=== PATIENT | male | born 1940 | race Caucasian/White ===

== ENCOUNTER 2019-01-18 10:49 | Inpatient (IN) | payer OTHER, MEDICARE ==
--- NOTE | 2019-01-18 11:04 | EDPHY ---
H & P Time Seen by Provider: 01/18/19 10:59 HPI/ROS: CHIEF COMPLAINT: Syncope, head injury HISTORY OF PRESENT ILLNESS: 78-year-old male presents after a fall with a head injury. According to bystanders, he was standing on the 4th rung of a ladder when he became rigid and then fell backwards, striking his head and back on the ground. He was alert on scene and was not postictal. c/o mild left-sided rib pain after the fall. No prodromal symptoms. Ate breakfast this morning. Denies recent illness, dizziness, shortness of breath, chest pain, abdominal pain, headache or neck pain. No prior similar sx and no h/o sz disorder. REVIEW OF SYSTEMS: complete 10 point ROS reviewed and is negative except for the noted elements in the HPI - Social History Alcohol Use: Sober Drug Use: None - Physical Exam Exam: General Appearance: Alert, talkative, not confused Head: 6 cm complex H-shaped scalp laceration Eyes: No conjunctival erythema, PERRLA, EOMI, horizontal nystagmus present ENT, Mouth: no oral trauma, no facial bony tenderness Neck: Nontender, full range of motion without pain Respiratory: normal inspection, left chest wall tenderness, lungs clear bilaterally Cardiovascular: Regular rate and rhythm Abdomen: Abdomen is soft and nontender Skin: No abrasions Back: No midline T/L/S tenderness Extremities: Pelvis is stable and nontender; no extremity tenderness or deformity, full range of motion without pain Neurological: A&Ox3, normal motor function, normal sensory exam, cranial nerves intact Psychiatric: Mood and affect normal Constitutional: Initial Vital Signs Temperature (C) 36.5 C 01/18/19 10:49 Heart Rate 69 01/18/19 10:49 Respiratory Rate 16 01/18/19 10:49 Blood Pressure 160/81 H 01/18/19 10:49 O2 Sat (%) 89 L 01/18/19 10:49 O2 Delivery Mode Room Air Allergies/Adverse Reactions: No Known Allergies Allergy (Verified 01/18/19 14:37) Home Medications: Medication Instructions Recorded Acetaminophen [Tylenol 325mg (*)] 325 mg PO DAILY PRN 01/18/19 Glucosamine Sulfate [Glucosamine 500 mg PO DAILY 01/18/19 Sulfate 500 MG (*)] Herbals/Supplements -Info Only 1 ea PO DAILY 01/18/19 Omeprazole 40 mg PO DAILY 01/18/19 Ranitidine HCl [Zantac] 150 mg PO HS 01/18/19 Simvastatin [Zocor] 20 mg PO HS 01/18/19 Tamsulosin HCl [Flomax 0.4 MG (*)] 0.8 mg PO HS 01/18/19 Triamterene/Hydrochlorothiazid 1 each PO DAILY 01/18/19 [Triamterene-Hctz 37.5-25 mg Tb] amLODIPine BESYLATE [Norvasc 5 mg 5 mg PO DAILY 01/18/19 (*)] Psyllium Husk (with Sugar) 1 each PO DAILY 01/19/19 [Metamucil Packet] Medical Decision Making - Diagnostics EKG Interpretation: EKG interpreted by me reveals NSR, rate 68, RBBB, LPFB. Interpretation: abnormal EKG Imaging Results: Head CT 01/18/19 10:59 Impression: 1. No acute intracranial process. 2. 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 3. Suggestion of chronic microvascular ischemic disease. Findings and recommendations discussed with DULCE NG at 1122 hour, 2018. Imaging: Discussed imaging studies w/ tying in machine operator Radiologist Procedures: Procedure: Laceration repair. The 6 cm complex laceration on the scalp was anesthetized using lidocaine with epinephrine. The wound was irrigated, draped and explored to its base with a gloved finger. There were no deep structures involved. No foreign body palpable. The wound was repaired with katy. The wound repair was simple. ED Course/Re-evaluation: This patient presents as a LTA+ after a syncopal episode with a scalp laceration and rib pain. Cspine cleared by me on pt arrival by NEXUS criteria. Stat EKG reveals RBBB and LPFB; no evidence of ischemia or dysrhythmia. Presentation concerning for dysrhythmia, given lack of prodromal sx and bifascicular block on EKG. Considered primary seizure, but the patient was not postictal after the episode. CT head obtained d/t syncope and CHI in elderly pt. CT head: no evidence of ICH/fx. CXR reveals no evidence of PTX or rib fx, results d/w pt. Scalp laceration stapled by me. Serial neuro exams x 2 unchanged. Abd remains soft, NT. Dr Paul consulted for admission d/t LTA + and saw the pt in the ED. Dr. Lopez consulted for w/u of syncopal episode and saw pt in ED. Pt stable and desk monitor NSR throughout ED stay. Differential Diagnosis: Differential diagnosis includes though is not limited to cardiac dysrhythmia, CVA, TIA, GI bleed, sepsis, hypoglycemia. - Data Points Laboratory Results: Laboratory Results 01/18/19 11:00 01/18/19 11:00 Medications Given: Amlodipine Besylate (Norvasc) 5 mg PO DAILY [facility] Stop: 07/18/19 08:59 Last Admin: 01/20/19 07:15 Dose: 5 mg Atorvastatin Calcium (Lipitor) 10 mg PO HS KELLY Stop: 07/17/19 20:59 Last Admin: 01/19/19 21:51 Dose: 10 mg Famotidine (Pepcid) 20 mg PO HS KELLY Stop: 07/17/19 20:59 Last Admin: 01/19/19 21:51 Dose: 20 mg Ibuprofen (Motrin) 600 mg PO Q8HRS KELLY Stop: 07/17/19 13:59 Last Admin: 01/20/19 06:09 Dose: 600 mg Miscellaneous Medication (Cholecalciferol 400 Iu) 400 iunits PO DAILY KELLY Stop: 07/18/19 16:59 Last Admin: 01/19/19 18:51 Dose: 400 i.unit Miscellaneous Medication (Co Q-10 ) 100 mg PO DAILY KELLY Stop: 07/18/19 16:59 Last Admin: 01/19/19 18:51 Dose: 100 mg Miscellaneous Medication (Glucosamine Msm ) 1,500 mg PO DAILY KELLY Stop: 07/18/19 16:59 Last Admin: 01/19/19 18:52 Dose: 1,500 mg Miscellaneous Medication (Saw Eolia ) 160 mg PO DAILY [facility] Stop: 07/18/19 16:44 Last Admin: 01/19/19 18:52 Dose: 160 mg Oxycodone HCl (Oxycodone Ir) 5 - 10 mg PO Q4HRS PRN PRN Reason: Pain, Severe Able to Take PO Stop: 01/28/19 12:59 Last Admin: 01/19/19 05:20 Dose: 5 mg Pantoprazole Sodium (Protonix) 40 mg PO DAILY [facility] Stop: 07/18/19 08:59 Last Admin: 01/19/19 09:01 Dose: 40 mg Psyllium Hydrophilic Mucilloid (Metamucil/Konsyl) 1 each PO DAILY KELLY Stop: 07/18/19 16:44 Last Admin: 01/19/19 17:20 Dose: 1 each Tamsulosin HCl (Flomax) 0.8 mg PO HS KELLY Stop: 07/17/19 20:59 Last Admin: 01/19/19 21:51 Dose: 0.8 mg Triamterene/HCTZ (Maxzide-25) 1 each PO DAILY KELLY Stop: 07/18/19 08:59 Last Admin: 01/19/19 09:01 Dose: 1 each Discontinued Medications Potassium Chloride/Dextrose/Sod Cl (D5w 1/2 Ns W/ 20 Kcl/L) 1,000 mls @ 100 mls /hr IV CONT KELLY Stop: 07/17/19 12:59 Last Admin: 01/18/19 15:05 Dose: 1,000 mls Miscellaneous Medication (Saw Eolia ) 450 mg PO DAILY KELLY Stop: 07/18/19 16:44 Last Admin: 01/19/19 19:46 Dose: Not Given Point of Care Test Results: Chemistry 01/18/19 11:04 POC Troponin I 0.01 ng/mL ng/mL (0.00-0.08) Departure - Departure Disposition: [facility] Inpatient Acute Clinical Impression: Syncope Qualifiers: Syncope type: unspecified Qualified Code(s): R55 - Syncope and collapse Scalp laceration Qualifiers: Encounter type: initial encounter Qualified Code(s): S01.01XA - Laceration without foreign body of scalp, initial encounter Chest wall contusion Qualifiers: Encounter type: initial encounter Laterality: left Qualified Code(s): S20.212A - Contusion of left front wall of thorax, initial encounter Condition: Fair
[2019-01-18 11:16] LABS: PLATELET COUNT 329 10^3/uL (150-400)
--- NOTE | 2019-01-18 12:47 | GCON ---
[f rep st] CONSULTATION DATE OF CONSULTATION: 01/18/2019 REASON FOR CONSULTATION: I was asked by Dr. Paul to see Mr. Maldonado in regard to his medical is sues including hypertension, hyperlipidemia, and syncope. HISTORY OF PRESENT ILLNESS: This is a 78-year-old man who was brought in as a full trauma activation after falling off a ladder. 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 His day, per his rep ort, was normal. He ate normally. Has not had any nausea, vomiting, or diarrhea. Immediately befor e falling off he had no prodromal symptoms including no shortness of breath, no palpitations, no ches t pain. He was a few rungs up on the ladder when he fell backwards hitting his head. He has no real recollection of this. He does remember the paramedics coming and waking him up when he was still on the floor. There was no report of any tonic-clonic movement. He was not confused afterwards. He d id not lose control of his bowel or bladder. He has never fainted before. He has no cardiac history per his report. He does not believe he has ever had a cardiac stress test. PAST MEDICAL/SURGICAL HISTORY: 1. Hypertension. 2. BPH. 3. GERD. 4. Hyperlipidemia. 5. Carpal tunnel release. MEDICATIONS: Please see medication reconciliation. ALLERGIES: No known drug allergies. FAMILY HISTORY: His father had heart disease in his 80s. His mother lived to be 100. 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 REVIEW OF SYSTEMS: A 10-point review of systems is conducted and is negative except per HPI. PHYSICAL EXAM: VITAL SIGNS: Blood pressure 160/81, heart rate 69, respiration rate 16, saturating 8 9% on room air, temperature 36.5. GENERAL: Mr. Maldonado is a pleasant man who is resting comfortably in no acute distress. HEENT: Shows him to have a complicated scalp laceration close to the crown of his head. He has katy in place. CARDIOVASCULAR: Regular rate and rhythm. I do hear some henrique ture beats. He has no elevated JVD. He has trace right lower extremity pitting edema. PULMONARY: Shows him to be breathing comfortably. Lungs are clear to auscultation bilaterally. ABDOMEN: Exam is soft. He is mildly obese. He is nontender to palpation. SKIN: Shows no rash. : Shows no Fo jasmina. NEUROLOGIC: Shows him to be alert and oriented x3. He has a nonfocal neurologic exam. PSYCHI ATRIC: Exam shows a normal mood and affect. LABS: White count is 9.9, hemoglobin is 18.1. Basic metabolic panel is normal. Troponin is negativ e. DATA: 1. Head CT shows cystic encephalomalacia of the right frontal lobe. 2. EKG, which I personally viewed and interpreted, shows sinus rhythm. He has premature beats. He has a right bundle branch block as well as a left posterior fascicular block. 3. Chest x-ray, which I personally viewed and interpreted, Radiology read is pending. Shows borderl ine cardiomegaly. There are no acute infiltrates. IMPRESSION AND PLAN: 1. Syncope: Concerning for arrhythmogenic given his history. He also has an abnormal EKG. Also co nsider pulmonary embolism (his vitals do not support this), he does have trace right lower extremity edema. He has an abnormal CT scan of his head which shows chronic findings. I have discussed with Antoni Randolph, Cardiology will consult. Will order echocardiogram, trend troponins and telemetry maria t toring. We will order an ultrasound of his lower extremities as well as a D-dimer. Based on these f indings, will consider additional workup or diagnostic testing. 2. Chronic encephalomalacia: He follows with the [facility]. This can likely be followed up as out patient. 3. I doubt the whole presentation is consistent with a seizure as there was no report of tonic-cloni c movement. 4. Hypertension: Will continue his home medications when those have been reconciled as he is hypert ensive. 5. Gastroesophageal reflux disease: PPI. 6. Hyperlipidemia: Continue medications after they have been reconciled. Thank you for involving Hospital Medicine in the care of Mr. Maldonado. We will continue to follow with you. /[id number]/MODL
--- NOTE | 2019-01-18 12:58 | PDGENHP ---
History and Physical - Chief Complaint fall with syncopal episode - History of Present Illness 78yo M, limited trauma activation. Was on a ladder working on a friends house. Doesnt remember falling but remembers coming to. Endorses head pain but has no other complaints. Has never had a syncopal episode in his life. Enroses seeing a PCP regularly. No CP. No fevers or chills. He is AOx3, protecting his airway with adequate breathing and normal circulation. History Information - Allergies/Home Medication List Allergies/Adverse Reactions: No Known Allergies Allergy (Unverified 01/18/19 11:11) Home Medications: Amlodipine Besylate 01/18/19 [Last Taken Unknown] Omeprazole 01/18/19 [Last Taken Unknown] Tamsulosin HCl 01/18/19 [Last Taken Unknown] Triamterene 01/18/19 [Last Taken Unknown] I have personally reviewed and updated: family history, medical history, social history, surgical history Past Medical History: HTN, BPH, GERD, HLD - Surgical History Additional surgical history: R carpal tunnel release, angela knee scopes - Family History Positive for: non-pertinent - Social History Smoking Status: Current some day smoker Alcohol Use: Sober Drug Use: None Review of Systems Review of Systems: ROS: 10pt was reviewed & negative except for what was stated in HPI & below Physical Exam Physical Exam: Temp Pulse Resp BP Pulse Ox 36.5 C 69 16 160/81 H 89 L 01/18/19 10:49 01/18/19 10:49 01/18/19 10:49 01/18/19 10:49 01/18/19 10:49 Constitutional: no apparent distress, appears nourished, not in pain Eyes: PERRL, anicteric sclera, EOMI Ears, Nose, Mouth, Throat: moist mucous membranes, hearing normal, ears appear normal, no oral mucosal ulcers Cardiovascular: regular rate and rhythym, no murmur, rub, or gallop, No edema Respiratory: no respiratory distress, no rales or rhonchi, clear to auscultation , other (chest is min TTP on LL, no crepitus ) Gastrointestinal: normoactive bowel sounds, soft, non-tender abdomen, no palpable masses Genitourinary: no bladder fullness, no bladder tenderness Skin: warm, normal color, no rashes or abrasions, no fluctuance, no induration, other (skin lac to posterior head (repaired with katy)), No mottled Musculoskeletal: full muscle strength, no muscle tenderness, normal joint ROM, no joint effusions Psychiatric: interacting appropriately, not anxious, not encephalopathic, thought process linear Lymph, Heme, Immunologic: no cervical LAD, no supraclavicular LAD Lab Data & Imaging Review 01/18/19 11:00 01/18/19 11:00 WBC 9.96 10^3/uL (3.80-9.50) H 01/18/19 11:00 RBC 5.95 10^6/uL (4.40-6.38) 01/18/19 11:00 Hgb 18.1 g/dL (13.7-17.5) H 01/18/19 11:00 Hct 51.6 % (40.0-51.0) H 01/18/19 11:00 MCV 86.7 fL (81.5-99.8) 01/18/19 11:00 MCH 30.4 pg (27.9-34.1) 01/18/19 11:00 MCHC 35.1 g/dL (32.4-36.7) 01/18/19 11:00 RDW 13.3 % (11.5-15.2) 01/18/19 11:00 Plt Count 329 10^3/uL (150-400) 01/18/19 11:00 MPV 9.9 fL (8.7-11.7) 01/18/19 11:00 Neut % (Auto) 56.2 % (39.3-74.2) 01/18/19 11:00 Lymph % (Auto) 29.1 % (15.0-45.0) 01/18/19 11:00 [place] % (Auto) 11.3 % (4.5-13.0) 01/18/19 11:00 Eos % (Auto) 2.1 % (0.6-7.6) 01/18/19 11:00 Baso % (Auto) 0.8 % (0.3-1.7) 01/18/19 11:00 Nucleat RBC Rel Count 0.0 % (0.0-0.2) 01/18/19 11:00 Absolute Neuts (auto) 5.59 10^3/uL (1.70-6.50) 01/18/19 11:00 Absolute Lymphs (auto) 2.90 10^3/uL (1.00-3.00) 01/18/19 11:00 Absolute Monos (auto) 1.13 10^3/uL (0.30-0.80) H 01/18/19 11:00 Absolute Eos (auto) 0.21 10^3/uL (0.03-0.40) 01/18/19 11:00 Absolute Basos (auto) 0.08 10^3/uL (0.02-0.10) 01/18/19 11:00 Absolute Nucleated RBC 0.00 10^3/uL (0-0.01) 01/18/19 11:00 Immature Gran % 0.5 % (0.0-1.1) 01/18/19 11:00 Immature Gran # 0.05 10^3/uL (0.00-0.10) 01/18/19 11:00 D-Dimer 0.97 ug/mLFEU (0.00-0.50) H 01/18/19 11:00 Sodium 138 mEq/L (135-145) 01/18/19 11:00 Potassium 4.2 mEq/L (3.5-5.2) 01/18/19 11:00 Chloride 103 mEq/L (97-110) 01/18/19 11:00 Carbon Dioxide 26 mEq/l (22-31) 01/18/19 11:00 Anion Gap 9 mEq/L (6-14) 01/18/19 11:00 BUN 14 mg/dL (7-23) 01/18/19 11:00 Creatinine 1.0 mg/dL (0.7-1.3) 01/18/19 11:00 Estimated GFR > 60 01/18/19 11:00 Glucose 97 mg/dL (70-100) 01/18/19 11:00 Calcium 10.0 mg/dL (8.5-10.4) 01/18/19 11:00 POC Troponin I 0.01 ng/mL (0.00-0.08) 01/18/19 11:04 Troponin I < 0.012 ng/mL (0.000-0.034) 01/18/19 11:00 Visualized and Interpreted imaging results: Yes Interpretation: CT head: negative. CXR: no acute trauma, no fx Assessment & Plan Assessment: Syncope (Acute) Plan: 78yo M s/p likely syncopal episode - patient will be admitted to the trauma service, IM consultation for syncopal MAR - gentle fluids - reg diet - PO pain control - PT/OT
[2019-01-18] MEDS ORDERED: D5W 1/2 NS W/ 20 KCl/L 1,000 ML IV SCH (13:00)
[2019-01-18] MEDS ORDERED: HYDROmorphONE/DILAUDID 1 MG/ML INJ IVP PRN (13:00)
[2019-01-18] MEDS ORDERED: ACETAMINOPHEN 325 MG TAB PO PRN ×2 (13:00→16:26)
[2019-01-18] MEDS ORDERED: IOPAMIDOL (ISOVUE 370) 100 ML BTL IV ONE (13:43)
[2019-01-18] MEDS: IBUPROFEN 600 MG TAB PO SCH ×2 (14:56→23:10)
[2019-01-18] MEDS: oxyCODONE IR 5 MG TAB PO PRN ×2 (14:56→17:27)
--- NOTE | 2019-01-18 15:04 | CPEKG ---
Test Reason : OPEN Blood Pressure : / mmHG Vent. Rate : 068 BPM Atrial Rate : 068 BPM P-R Int : 185 ms QRS Dur : 175 ms QT Int : 459 ms P-R-T Axes : 073 102 -24 degrees QTc Int : 489 ms Sinus rhythm Atrial premature complexes RBBB and LPFB Confirmed by Steph Wadsworth ([id number]) on 01/18/2019 3:04:22 PM Referred By: Steph Wadsworth Confirmed By:Steph Wadsworth
--- NOTE | 2019-01-18 15:22 | SOAPPROG ---
[facility] Progress Note Assessment/Plan: Assessment: cardiology new patient visit and consultation performed and dictated 78 y/o man with HTN, BPH and hyperlipidemia with no previous cardiac problems or testing. He usually can walk for three miles with mild UMAÑA but no CP or palpitations. 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 Denies prodromal CP, palpitations or symptoms. Bedside echo just completed shows normal LVEF with normal valvular function. ECG with NSR with RBBB and LPFB at 68bpm. IMP: Syncope concerning for bradyarrhythmias. Low suspicion for CAD or CHF but needs functional stress test. REC: 1)continue on home BP meds (Amlodipine and Maxzide). 2)telemetry monitoring to in particular look for bradyarrhythmias. 3)will discuss with EP service for 30 day event monitor vs EP study. 4)pt is pretty sore after fall off ladder. Probably couldn't do a treadmill cardiolite currently but could do lexiscan cardiolite if needed or out-patient. Will also discuss this with EP service. Thanks. Will follow with you. 01/18/19 15:15 Objective: Vital Signs Temp Pulse Resp BP Pulse Ox 36.8 C 79 20 152/89 H 94 01/18/19 14:56 01/18/19 14:56 01/18/19 14:56 01/18/19 14:56 01/18/19 14:56 01/17/19 01/18/19 01/19/19 05:59 05:59 05:59 Intake Total 200 Balance 200 ICD10 Worksheet Patient Problems: Problems Problem Status Onset Syncope Acute
--- NOTE | 2019-01-18 16:20 | ECHO ---
[email or web address] [address] Main: [phone] Echocardiography Examination Transthoracic Name: MARIAJOSE VALERIO MR#: [id number] Study Date: 01/18/2019 Study Time: 02:52 PM Date of : 1940 Age: 78 year(s) Height: 175.3 cm (69 in.) Weight: 92.99 kg (205 lb.) BSA: 2.09 m2 Gender: Male Examination: Echo Contrast: Image Quality: Good Rhythm: Normal sinus rhythm with ectopy Heart Rate: 75 bpm BP: 152 mmHg/89 mmHg Indication: Cardiac: syncope Procedure Staff Referring Physician: Registered Public Health Nurse: Juan Donato RDCS Reading Physician: Stuart Amezquita MD Requesting Provider: Indication: Cardiac: syncope Measurements Chambers AV/MV Label Value Normal Value Label Value Normal Value IVSd, 2D 0.9 cm (0.6cm - 1.1cm) AV PGmax 10 mmHg LVDd, 2D 5.3 cm (4.2cm - 5.9cm) AV PGmean 4 mmHg LVDs, 2D 3.2 cm (2.1cm - 4cm) AV Vmax 1.6 m/s LVEF, 2D 63 % (54% - 74%) JACQUELYN (continuity eq. 1.9 cm2 LVOT PGmax 3 mmHg Vmax) LVOT PGmean 2 mmHg JACQUELYN D (continuity eq. 2.7 cm2 LVOT Vmax 0.86 m/s (0.7m/s - 1.1m/s) VTI) LVOT Vmean 0.62 m/s MV E' lateral 0.07 m/s LVOTd 2.1 cm (1.9cm - 2.1cm) MV E' mean 0.06 m/s LVPWd, 2D 0.9 cm (0.6cm - 1cm) MV E' septal 0.06 m/s RVDd, 2D 2 cm (1.9cm - 3.8cm) MV E Vmax 0.97 m/s LA Area, A2C 16.1 cm2 (0cm2 - 20cm2) MV E/E' lateral 13.7 LA Volume, A2C 49 ml (18ml - 58ml) MV E/E' mean 14.92 LA Volume, A4C 41 ml (16ml - 34ml) MV E/E' septal 15.3 (0.45 - 1.25) LA Volume, BP 45 ml (18ml - 58ml) TV/PV LAD Index, 2D 1.67 cm/m2 Label Value Normal Value LADs, 2D 3.5 cm (3cm - 4cm) RA Pressure 5 mmHg LAESV index, MOD4 19.6 ml/m2 RVSP 33 mmHg Additional Vessels TR Pmax 28 mmHg Label Value Normal Value TR Vmax 2.65 m/s Patient: MARIAJOSE VALERIO Study Date: 01/18/2019 Page 1 of 2 02:52 PM AoRoot, MM 3.3 cm (2.2cm - 3.7cm) PV PGmax 7 mmHg PV Vmax, Caliper 1.32 m/s (0.6m/s - 0.9m/s) Findings Left Ventricle: Left ventricle is normal in size. The ejection fraction, measured by 2D, is 63 %. Left ventricle wall thickness is normal. There are no regional wall motion abnormalities. Cannot determine LAP and Diastolic Dysfunction Grade. Right Ventricle: Normal size right ventricle. Right ventricular systolic function is normal. Left Atrium: The left atrium is normal in size. Right Atrium: The right atrium is normal in size. Mitral Valve: Mitral valve appears structurally normal. No mitral regurgitation. No mitral valve stenosis. There is no mitral calcification. Aortic Valve: Aortic leaflets are normal in appearance and function. No aortic valve regurgitation. There is no aortic stenosis. Aortic leaflets exhibit no calcification. The aortic valve is trileaflet. Tricuspid Valve: Tricuspid valve leaflets are normal in appearance and function. Trivial tricuspid regurgitation. Right Ventricular systolic pressure is measured at 33 mmHg. Pulmonic Valve: Pulmonic leaflets are normal in appearance and function. No pulmonic valve regurgitation is evident. Aorta: The aortic root is normal size. The aortic root size in M-mode measures 3.3 cm. Aorta Measurements AoRoot, MM is 3.3 cm. Pericardium: No pericardial effusion. Exam Details Procedure Ordered: Echo Procedure Status: Routine study Image Quality: Good Facility Location: Cardiac Echo 1 (No Signature Object) Patient: MARIAJOSE VALERIO Study Date: 01/18/2019 Page 2 of 2 02:52 PM [id number]
--- NOTE | 2019-01-18 16:23 | GCON ---
[f rep st] CONSULTATION CARDIOLOGY NEW PATIENT CONSULT DATE OF CONSULTATION: 01/18/2019 REASON FOR CONSULTATION: Evaluate gentleman with syncope. HISTORY OF PRESENT ILLNESS: The patient is a 78-year-old gentleman with hypertension x10 years and B PH and hyperlipidemia. He has never had any cardiac problems or cardiac testing before. 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 He has never had any chest pain, palpitations, or syncope before today. He was at the construction site, on the ladder, helping out some of his crew when all of a becerra dden he awoke after passing out and falling off the ladder. He does not recall any chest pain or hea rt palpitations or symptoms in the minute before his syncope. Currently, he is sore from bruised hip and ribs, but reports no chest pressure or shortness of breath. His EKG demonstrates normal sinus r hythm at 68 beats per minute with a right bundle branch block and left posterior fascicular block. A n echo just done at the bedside demonstrates normal LV function and normal valvular function. PAST MEDICAL HISTORY: Hypertension x10 years, BPH, GERD, hyperlipidemia, and carpal tunnel syndrome. PAST SURGICAL HISTORY: Right carpal tunnel surgery 2 months ago. HOME MEDICATIONS: Amlodipine, Flomax, Maxzide, and Prilosec. ALLERGIES: No known drug allergies. SOCIAL HISTORY: The patient lives in [place], [place], but works in [place]. He has 1-2 cigars a day , but does not smoke cigarettes. He has mild alcohol intake with 1 beer per day. FAMILY HISTORY: Unremarkable for premature coronary artery disease or premature sudden cardiac . REVIEW OF SYSTEMS: The patient reports no recent fevers, chills, cough, or hemoptysis. He has no GI bleed symptoms such as hematemesis, melena, or bright red blood per rectum. Rest of 10-point review of systems is negative. PHYSICAL EXAM: VITAL SIGNS: Afebrile, pulse 70, blood pressure 170/69, respirations 22, weight 93 k g. GENERAL: A mildly obese gentleman, in no acute distress, without chest pain or using excess resp iratory muscles. EYES: Pupils equal and reactive to light. ENT: Oral mucosa with no cyanosis. NE CK: Jugular venous pressure to 7 cm. Carotid pulses 2+ bilaterally with no obvious bruits. No thyr omegaly noted. LUNGS: Clear to auscultation bilaterally without rales, rhonchi, or wheezing. HEART : Normal PMI. Regular rate and rhythm with no obvious murmurs or S3. ABDOMEN: Soft and nontender. No guarding or rebound. No bruit heard over his abdominal aorta. EXTREMITIES: 2+ peripheral puls es, including femoral and pedal pulses. No edema noted. MUSCULOSKELETAL: No nuchal rigidity. SKIN : No bleeding or cyanosis. NEURO: Normal affect and mood. DIAGNOSTIC STUDIES: EKG: Normal sinus rhythm at 68 beats per minute with right bundle branch block and left posterior fascicular block. LABS: White count 10, hematocrit 52, platelets 329,00. MCV 87. Sodium 138, potassium 4.2, chloride 103, bicarb 26, BUN 14, creatinine 1.0, glucose 97. Troponin negative. Other ancillary tests: CT of the chest shows no PE. IMPRESSION AND RECOMMENDATION: A 78-year-old gentleman with syncopal episode and loss of consciousne ss today. His syncope is concerning for possible cardiac arrhythmias, in particular luci arrhythmia s with his right bundle branch block and left posterior fascicular block. He has normal LV function and clinically no suggestion of unstable angina. PLAN: 1. Agree with admitting to observation on telemetry, in particular looking for luci arrhythmias. 2. Will show his EKG and discuss his case with the EP Cardiology service. We will discuss whether t o do a 30 day event monitor versus an EP study. 3. The patient is pretty sore from his fall and performing on a treadmill tomorrow might be difficul t. He does need evaluation of underlying coronary artery disease and can do a Lexiscan Cardiolite st ress test tomorrow or a treadmill Cardiolite as an outpatient. We will discuss this also with EP Car diology. 4. For now, would continue on home medications including his amlodipine and Maxzide. Thank you for allowing me to participate in the care of Mr. Maldonado. /[id number]/MODL
[2019-01-18] MEDS ORDERED: ONDANSETRON 4 MG/2 ML VIAL IVP PRN (17:17)
[2019-01-18] MEDS: FAMOTIDINE 20 MG TAB PO SCH (20:08)
[2019-01-18] MEDS: TAMSULOSIN HCL 0.4 MG CAP PO SCH (20:08)
[2019-01-18] MEDS: ATORVASTATIN CALCIUM 10 MG TAB PO SCH (20:09)
[2019-01-19] MEDS: oxyCODONE IR 5 MG TAB PO PRN (05:20)
[2019-01-19] MEDS: IBUPROFEN 600 MG TAB PO SCH ×3 (05:20→21:51)
[2019-01-19] MEDS: PANTOPRAZOLE SODIUM 40 MG TAB PO SCH (09:01)
[2019-01-19] MEDS: TRIAMTERENE/HCTZ 37.5/25 1 EACH TAB PO SCH (09:01)
[2019-01-19] MEDS: amLODIPine BESYLATE 5 MG TAB PO SCH (09:01)
--- NOTE | 2019-01-19 09:12 | HOSPPROG ---
Hospitalist Progress Note Assessment/Plan: # syncope - concerning for luci-arrhythmia - cardiology will discuss with EP - cont tele # head laceration - katy placed in the ED # right arm edema - check ultrasound # hypertension - cont norvasc and triamterene/hctz # HLD - lipitor # BPH - flomax Subjective: No syncope overnight. Reports right arm edema that started when he got his CT angiogram Objective: Vital Signs Temp Pulse Resp BP Pulse Ox 36.6 C 64 16 148/92 H 96 01/19/19 07:46 01/19/19 07:46 01/19/19 07:46 01/19/19 07:46 01/19/19 07:46 01/18/19 01/19/19 01/20/19 05:59 05:59 05:59 Intake Total 3110 Output Total 800 Balance 2310 Chart reviewed Discussed with Kimi CT angio reviewed - Physical Exam Constitutional: no apparent distress, appears nourished Cardiovascular: regular rate and rhythym, no murmur, rub, or gallop Respiratory: no respiratory distress, no rales or rhonchi, clear to auscultation Gastrointestinal: soft, non-tender abdomen, no palpable masses, No guarding, No rebound, No distension Musculoskeletal: other (Right arm edema) ICD10 Worksheet Patient Problems: Problems Problem Status Onset Syncope Acute
--- NOTE | 2019-01-19 11:02 | PDCARCONS ---
Cardiology Consult Reason for Consult: Syncope Chief Complaint: Syncope Requesting Physician: Dr. 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 He was standing up on a ladder, 6 ft high when somebody handed him a plank. He he does not remember having any palpitations, chest discomfort or shortness of breath. Witnesses described him rolling his eyes back in his head and falling like a log" to the floor. I was asked to see the patient by Dr. Stuart Amezquita because the patient has bifascicular block on EKG. History Information - Allergies/Home Medication List Allergies/Adverse Reactions: No Known Allergies Allergy (Verified 01/18/19 14:37) Home Medications: Acetaminophen [Tylenol 325mg (*)] 325 mg PO DAILY PRN 01/18/19 [Last Taken Unknown] Glucosamine Sulfate [Glucosamine Sulfate 500 MG (*)] 500 mg PO DAILY 01/18/19 [ Last Taken 01/18/19] Herbals/Supplements -Info Only 1 ea PO DAILY 01/18/19 [Last Taken Unknown] Omeprazole 40 mg PO DAILY 01/18/19 [Last Taken 01/18/19] Ranitidine HCl [Zantac] 150 mg PO HS 01/18/19 [Last Taken 01/17/19] Simvastatin [Zocor] 20 mg PO HS 01/18/19 [Last Taken 01/17/19] Tamsulosin HCl [Flomax 0.4 MG (*)] 0.8 mg PO HS 01/18/19 [Last Taken 01/17/19] Triamterene/Hydrochlorothiazid [Triamterene-Hctz 37.5-25 mg Tb] 1 each PO DAILY 01/18/19 [Last Taken 01/18/19] amLODIPine BESYLATE [Norvasc 5 mg (*)] 5 mg PO DAILY 01/18/19 [Last Taken ] Psyllium Husk (with Sugar) [Metamucil Packet] 1 each PO DAILY 01/19/19 [Last Taken Unknown] Past Medical History: - Social History Smoking Status: Current some day smoker Alcohol Use: Sober Drug Use: None Physical Exam Physical Exam: Temp Pulse Resp BP Pulse Ox 36.6 C 64 16 148/92 H 96 01/19/19 07:46 01/19/19 07:46 01/19/19 07:46 01/19/19 07:46 01/19/19 07:46 Constitutional: no apparent distress, appears nourished (He is) Eyes: PERRL, EOMI Ears, Nose, Mouth, Throat: moist mucous membranes, hearing normal Cardiovascular: regular rate and rhythym, no murmur, rub, or gallop Respiratory: no respiratory distress, no rales or rhonchi Gastrointestinal: normoactive bowel sounds, soft, non-tender abdomen Genitourinary: no bladder fullness Skin: warm, normal color Neurologic: AAOx3 Psychiatric: interacting appropriately, not anxious, not encephalopathic Lab and Imaging 01/18/19 11:00 01/18/19 11:00 WBC 9.96 10^3/uL (3.80-9.50) H 01/18/19 11:00 RBC 5.95 10^6/uL (4.40-6.38) 01/18/19 11:00 Hgb 18.1 g/dL (13.7-17.5) H 01/18/19 11:00 Hct 51.6 % (40.0-51.0) H 01/18/19 11:00 MCV 86.7 fL (81.5-99.8) 01/18/19 11:00 MCH 30.4 pg (27.9-34.1) 01/18/19 11:00 MCHC 35.1 g/dL (32.4-36.7) 01/18/19 11:00 RDW 13.3 % (11.5-15.2) 01/18/19 11:00 Plt Count 329 10^3/uL (150-400) 01/18/19 11:00 MPV 9.9 fL (8.7-11.7) 01/18/19 11:00 Neut % (Auto) 56.2 % (39.3-74.2) 01/18/19 11:00 Lymph % (Auto) 29.1 % (15.0-45.0) 01/18/19 11:00 [place] % (Auto) 11.3 % (4.5-13.0) 01/18/19 11:00 Eos % (Auto) 2.1 % (0.6-7.6) 01/18/19 11:00 Baso % (Auto) 0.8 % (0.3-1.7) 01/18/19 11:00 Nucleat RBC Rel Count 0.0 % (0.0-0.2) 01/18/19 11:00 Absolute Neuts (auto) 5.59 10^3/uL (1.70-6.50) 01/18/19 11:00 Absolute Lymphs (auto) 2.90 10^3/uL (1.00-3.00) 01/18/19 11:00 Absolute Monos (auto) 1.13 10^3/uL (0.30-0.80) H 01/18/19 11:00 Absolute Eos (auto) 0.21 10^3/uL (0.03-0.40) 01/18/19 11:00 Absolute Basos (auto) 0.08 10^3/uL (0.02-0.10) 01/18/19 11:00 Absolute Nucleated RBC 0.00 10^3/uL (0-0.01) 01/18/19 11:00 Immature Gran % 0.5 % (0.0-1.1) 01/18/19 11:00 Immature Gran # 0.05 10^3/uL (0.00-0.10) 01/18/19 11:00 D-Dimer 0.97 ug/mLFEU (0.00-0.50) H 01/18/19 11:00 Sodium 138 mEq/L (135-145) 01/18/19 11:00 Potassium 4.2 mEq/L (3.5-5.2) 01/18/19 11:00 Chloride 103 mEq/L (97-110) 01/18/19 11:00 Carbon Dioxide 26 mEq/l (22-31) 01/18/19 11:00 Anion Gap 9 mEq/L (6-14) 01/18/19 11:00 BUN 14 mg/dL (7-23) 01/18/19 11:00 Creatinine 1.0 mg/dL (0.7-1.3) 01/18/19 11:00 Estimated GFR > 60 01/18/19 11:00 Glucose 97 mg/dL (70-100) 01/18/19 11:00 Calcium 10.0 mg/dL (8.5-10.4) 01/18/19 11:00 POC Troponin I 0.01 ng/mL (0.00-0.08) 01/18/19 11:04 Troponin I < 0.012 ng/mL (0.000-0.034) 01/18/19 19:15 EKG additional interpertation: Normal sinus rhythm, right bundle-branch block, left posterior fascicular block. A/P Assessment: 1. Syncope 2. Bifascicular block Plan: 78-year-old male with a sudden and concerning syncopal episode without prodrome. 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 ME interval is normal. He has ruled out for SD. LV ejection fraction is normal. We discussed several options: 1. EP study and measurement of HV interval and if prolonged placing a dual- chamber pacemaker 2. Implantation of LINQ monitor 3. Implantation of a dual-chamber pacemaker without EP study. This is a class 2B indication. Risks of transvenous pacemaker implantation including but not limited to , myocardial infarction, stroke, cardiac tamponade which may require emergent cardiac surgery, infection, bleeding, pneumothorax, lead dislodgement and risks of sedation/anesthesia were discussed. Long-term issues like pacemaker pocket erosion, lead failure, venous stenosis, superior vena cava syndrome, need for lead extraction were discussed. Need for close long- term follow-up in our device clinic was emphasized. Need for generator change was discussed. I have discussed this case with Dr. Stuart Amezquita and also Dr. Bhavesh Garnica who is his personal friend and takes care of the patient's . All of us and the patient want to move forward with a pacemaker implantation. I have discussed his case with Dr. Xu Colin who will be pacing the patient's pacemaker tomorrow. The patient will also have stress testing as outpatient and will follow up with Dr. Stuart Amezquita. This was a complex discussion with the patient due to need for review of records , discussion of pathophysiology of disease and discussion regarding multiple treatment modalities. I spent 45 minutes with the patient, more than 50% of which was spent in counseling.
--- NOTE | 2019-01-19 11:09 | PDMN ---
Medical Necessity Medical necessity: Pt meets IP criteria per MD & MCG [id number]; est los >2 mn for eval/tx of syncopal episode w/ fall from ladder, admit for further monitoring, Hospitalist/Cardiology evals, IVFs, pain management & therapies; per H&P & order 01/18/19
--- NOTE | 2019-01-19 12:18 | SOAPPROG ---
SOAP Progress Note Assessment/Plan: Assessment: Plan: Subjective: no new complaints tertiarty survey heent small post scalp lac neck non tender lungs clear ribs stbile sternum jonathon abd soft bening pelveis wnl ext neruo win assess: no noew traumatic injuries identified. trauma service will sign off- follow up 5 days for staple remmoval. Objective: Vital Signs Temp Pulse Resp BP Pulse Ox 36.8 C 70 16 149/87 H 95 01/19/19 12:00 01/19/19 12:00 01/19/19 12:00 01/19/19 12:00 01/19/19 12:00 01/18/19 01/19/19 01/20/19 05:59 05:59 05:59 Intake Total 3110 Output Total 800 900 Balance 2310 -900 ICD10 Worksheet Patient Problems: Problems Problem Status Onset Syncope Acute
--- NOTE | 2019-01-19 14:47 | ASMTCMCOM ---
CM Note CM Note Notes: 01/19/2019 Case Management Note Pt admitted for syncope and head injury. Met w/pt and family member. Provided contact information to financial counseling. Encourage pt to call number on back of Medicare card to discuss concerns regarding pacemaker coverage. PT discharged pt from services at [facility] and cleared for home. OT cleared for home. Case Management d/c poc: independent with follow up as directed. Case Management available if needs change. Date Signed: 01/19/2019 02:46 PM Electronically Signed By:Rosibel Gonzales RN
[2019-01-19] MEDS: PSYLLIUM METAMUCIL 1 PKT PO SCH (17:20)
[2019-01-19] MEDS: Co Q-10 100 MG PO SCH (18:51)
[2019-01-19] MEDS: CHOLECALCIFEROL PO SCH (18:51)
[2019-01-19] MEDS: GLUCOSAMINE MSM PO SCH (18:52)
[2019-01-19] MEDS: FAMOTIDINE 20 MG TAB PO SCH (21:51)
[2019-01-19] MEDS: ATORVASTATIN CALCIUM 10 MG TAB PO SCH (21:51)
[2019-01-19] MEDS: TAMSULOSIN HCL 0.4 MG CAP PO SCH (21:51)
[2019-01-20] MEDS: IBUPROFEN 600 MG TAB PO SCH ×3 (06:09→20:51)
[2019-01-20] MEDS ORDERED: diphenhydrAMINE 25 MG CAP PO ONE (06:17)
[2019-01-20] MEDS ORDERED: BACITRACIN IRRIGATION/NS 50,000 UNITS/1,000 ML BTL IRR ONE (06:17)
[2019-01-20] MEDS ORDERED: DIAZEPAM 5 MG TAB PO ONE (06:17)
[2019-01-20] MEDS ORDERED: NS 1,000 ML IV ONE (06:17)
[2019-01-20] MEDS ORDERED: ceFAZolin 2 GM/DEXTROSE 100 ML IV ONE (06:17)
[2019-01-20 06:47] LABS: PLATELET COUNT 256 10^3/uL (150-400)
[2019-01-20 06:57] LABS: INR 1.03 (0.83-1.16); PROTIME(PATIENT) 13.1 SEC (12.0-15.0)
[2019-01-20] MEDS: amLODIPine BESYLATE 5 MG TAB PO SCH (07:15)
[2019-01-20] MEDS ORDERED: BUPIVACAINE 0.75% 10 ML SDV ONE (07:38)
[2019-01-20] MEDS ORDERED: IOPAMIDOL (ISOVUE-300) 100 ML BTL ONE (07:38)
[2019-01-20] MEDS ORDERED: LIDOCAINE 1% 300 MG/30 ML SDV ONE (07:38)
--- NOTE | 2019-01-20 07:38 | PDGENHP ---
History & Physical Chief Complaint: syncope, bifascicular block Relevant Physical Exam: NAD, RR/NR, CTAB, A+Ox4 Cardiorespiratory Assessment: syncope + bifascicular block -> dual chamber PM
[2019-01-20] MEDS ORDERED: MIDAZOLAM 2 MG/2 ML VIAL IVP ONE (07:39)
[2019-01-20] MEDS ORDERED: fentaNYL 100 MCG/2 ML INJ IVP PRN (07:41)
[2019-01-20] MEDS ORDERED: NALOXONE HCL 0.4 MG/ML INJ IVP PRN (07:41)
[2019-01-20] MEDS ORDERED: PROMETHAZINE HCL 25 MG/ML INJ IVP PRN (07:41)
[2019-01-20] MEDS ORDERED: DEXAMETHASONE 4 MG/ML VIAL IVP PRN (07:41)
[2019-01-20] MEDS ORDERED: NS 500 ML IV PRN (07:41)
[2019-01-20] MEDS ORDERED: ONDANSETRON 4 MG/2 ML VIAL IVP PRN (07:41)
--- NOTE | 2019-01-20 07:41 | PDANEPAE ---
ANE Past Medical History - Cardiovascular History Hx Hypertension: Yes Hx Arrhythmias: Yes - Pulmonary History Hx COPD: No Hx Asthma/Reactive Airway Disease: No Hx Recent Upper Respiratory Infection: No Hx Oxygen in Use at Home: No Hx Sleep Apnea: No - Endocrine History Hx Diabetes: No Obesity: moderate - Chronic Pain History Chronic Pain: No ANE Review of Systems Review of Systems: ANE Patient History - Allergies Allergies/Adverse Reactions: No Known Allergies Allergy (Verified 01/18/19 14:37) - Home Medications Home medications: home medication list seen and reviewed Home Medications: Acetaminophen [Tylenol 325mg (*)] 325 mg PO DAILY PRN 01/18/19 [Last Taken Unknown] Glucosamine Sulfate [Glucosamine Sulfate 500 MG (*)] 500 mg PO DAILY 01/18/19 [ Last Taken 01/18/19] Herbals/Supplements -Info Only 1 ea PO DAILY 01/18/19 [Last Taken Unknown] Omeprazole 40 mg PO DAILY 01/18/19 [Last Taken 01/18/19] Ranitidine HCl [Zantac] 150 mg PO HS 01/18/19 [Last Taken 01/17/19] Simvastatin [Zocor] 20 mg PO HS 01/18/19 [Last Taken 01/17/19] Tamsulosin HCl [Flomax 0.4 MG (*)] 0.8 mg PO HS 01/18/19 [Last Taken 01/17/19] Triamterene/Hydrochlorothiazid [Triamterene-Hctz 37.5-25 mg Tb] 1 each PO DAILY 01/18/19 [Last Taken 01/18/19] amLODIPine BESYLATE [Norvasc 5 mg (*)] 5 mg PO DAILY 01/18/19 [Last Taken ] Psyllium Husk (with Sugar) [Metamucil Packet] 1 each PO DAILY 01/19/19 [Last Taken Unknown] - NPO status NPO Status: no food or drink >8 hours - Anes Hx Anes Hx: no prior problems - Smoking Hx Smoking Status: Current some day smoker - Alcohol Use Alcohol Use: Sober ANE Labs/Vital Signs - Labs Result Diagrams: 01/20/19 06:35 01/20/19 06:35 - Vital Signs Blood Pressure: 176/80 Heart Rate: 72 Respiratory Rate: 18 O2 Sat (%): 92 Height: 175.26 cm Weight: 93.3 kg ANE Physical Exam - Airway Neck exam: FROM Mallampati Score: Class 2 Mouth exam: normal dental/mouth exam - Pulmonary Pulmonary: no respiratory distress, no rales or rhonchi, clear to auscultation - Cardiovascular Cardiovascular: regular rate and rhythym, no murmur, rub, or gallop - ASA Status ASA Status: III ANE Anesthesia Plan Anesthesia Plan: MAC
[2019-01-20] MEDS ORDERED: fentaNYL 100 MCG/2 ML INJ ONE (08:07)
[2019-01-20] MEDS ORDERED: PROPOFOL 200 MG/20 ML VIAL ONE (08:08)
--- NOTE | 2019-01-20 09:42 | POSTANESTH ---
Post Anesthetic Evaluation Cardiovascular Status: Similar to Pre-Op Cond Respiratory Status: Normal, Stable, Similar to Pre-op Cond. Level of Consciousness/Mental Status: Can Participate in Eval, Alert and Oriented Pain Control: Adequate, Prn Tx Ordered Nausea/Vomiting Control: Adequate, Prn Tx Ordered Complications Possibly Related to Anesthesia: None Noted
--- NOTE | 2019-01-20 10:15 | EPPROC ---
Electrophysiology Procedure Note: Date: 01/20/2019 Receptionist Telephone Operator: Xu Colin MD Procedures: Implant dual-chamber pacemaker [id number] Indications: 78-year-old male with syncope, workup notable for bifascicular block. Techniques: Following informed consent, the patient was taken to the EP lab in a fasting nonsedated state, in sinus rhythm. IV antibiotics were administered. IV sedation was provided by the anesthesiology service. The left anterior chest was prepped and draped in usual sterile fashion. Vascular access was obtained under ultrasound guidance in the extrathoracic portion of the left subclavian vein x2. A skin incision was made at the left DP groove and cutdown was performed to the DP fascia; a subcutaneous pocket was fashioned. Two 6 [place]ican access sheaths were placed over the wires. Pacing leads were delivered to RV septal and RA appendage positions, and actively fixated. The leads were anchored to the underlying fascia using 2 nonabsorbable sutures around each lead 's retention sleeve. The leads were connected to the pulse generator and the system was placed in pocket. A non resorbable stay suture was applied to the can. The pocket was irrigated with antibiotic solution. The incision was closed in layers using absorbable sutures, and dressed with Steri-Strips. Final fluoro showed stable system position and no evidence of pneumothorax. The patient tolerated the procedure well. Pulse generator: SmartKickz [id number], SN [id number], implant 01/20/19 DDDR 60-130 RA lead: SJM 2088TC, SN [id number], implant 01/20/19 2.8mV, 545ohms, 0.75V@0.5ms RV lead: SJM 2088TC, SN [id number], implant 01/20/19 10.1mV, 660ohms, 0.5V@0.5ms EBL: Minimal Complications: None Plan: Bedrest overnight, chest x-ray in a.m., keep incision dry for 2 weeks, left upper extremity restrictions for 1 month. Patient Problems: Problems Problem Status Onset Syncope Acute
[2019-01-20] MEDS: TRIAMTERENE/HCTZ 37.5/25 1 EACH TAB PO SCH (12:14)
[2019-01-20] MEDS: PANTOPRAZOLE SODIUM 40 MG TAB PO SCH (12:14)
[2019-01-20] MEDS: Co Q-10 100 MG PO SCH (12:15)
[2019-01-20] MEDS: PSYLLIUM METAMUCIL 1 PKT PO SCH (12:15)
[2019-01-20] MEDS: CHOLECALCIFEROL PO SCH (12:16)
[2019-01-20] MEDS: GLUCOSAMINE MSM PO SCH (12:16)
[2019-01-20] MEDS: OXYCODONE/APAP 5/325 TAB PO PRN ×2 (16:03→20:49)
--- NOTE | 2019-01-20 16:59 | HOSPPROG ---
Hospitalist Progress Note Assessment/Plan: # syncope - thought secondary to bifascicular block -s/p pacemaker today -CXR in am # head laceration - katy placed in the ED # right arm edema - u/s neg for dvt # hypertension - cont norvasc and triamterene/hctz # HLD - lipitor # BPH - flomax # Full code # Dispo- cont inpt, likely dc in am if CXR ok and doing well. Subjective: Pt complains about discomfort being on bedrest, back hurts, hard to sit still. No CP, SOB. Just took a pain pill for incisional discomfort. Objective: Vital Signs Temp Pulse Resp BP Pulse Ox 37.7 C 74 25 H 196/85 H 92 01/20/19 16:00 01/20/19 16:00 01/20/19 16:00 01/20/19 16:00 01/20/19 16:00 Laboratory Results 01/20/19 06:35 01/20/19 06:35 01/19/19 01/20/19 01/21/19 05:59 05:59 05:59 Intake Total 3110 800 Output Total 800 3550 Balance 2310 -3550 800 PT 13.1 SEC (12.0-15.0) 01/20/19 06:35 INR 1.03 (0.83-1.16) 01/20/19 06:35 - Physical Exam Constitutional: no apparent distress Eyes: PERRL Ears, Nose, Mouth, Throat: moist mucous membranes Cardiovascular: regular rate and rhythym, other (chest wall incision dressed, no drainage) Respiratory: no respiratory distress, clear to auscultation Gastrointestinal: normoactive bowel sounds, soft, non-tender abdomen Skin: warm Musculoskeletal: full muscle strength Neurologic: AAOx3 Psychiatric: interacting appropriately ICD10 Worksheet Patient Problems: Problems Problem Status Onset Chest wall contusion Acute Scalp laceration Acute Syncope Acute
[2019-01-20] MEDS: ATORVASTATIN CALCIUM 10 MG TAB PO SCH (20:51)
[2019-01-20] MEDS: FAMOTIDINE 20 MG TAB PO SCH (20:52)
[2019-01-20] MEDS: TAMSULOSIN HCL 0.4 MG CAP PO SCH (20:52)
--- NOTE | 2019-01-21 06:40 | CPEKG ---
Test Reason : OPEN Blood Pressure : / mmHG Vent. Rate : 069 BPM Atrial Rate : 070 BPM P-R Int : 165 ms QRS Dur : 174 ms QT Int : 433 ms P-R-T Axes : 050 104 -09 degrees QTc Int : 464 ms Sinus rhythm Supraventricular bigeminy RBBB and LPFB Confirmed by Demetris Valdovinos ([id number]) on 01/21/2019 6:40:09 AM Referred By: Andrea Paul Confirmed By:Demetris Valdovinos
--- NOTE | 2019-01-21 06:45 | CPEKG ---
Test Reason : OPEN Blood Pressure : / mmHG Vent. Rate : 065 BPM Atrial Rate : 066 BPM P-R Int : 181 ms QRS Dur : 179 ms QT Int : 435 ms P-R-T Axes : 070 107 -22 degrees QTc Int : 453 ms Sinus rhythm Atrial premature complexes RBBB and LPFB Inferior infarct, age indeterminate Confirmed by Demetris Valdovinos ([id number]) on 01/21/2019 6:44:33 AM Referred By: nAdrea Paul Confirmed By:Demetris Valdovinos
[2019-01-21] MEDS: IBUPROFEN 600 MG TAB PO SCH ×2 (07:17→14:40)
[2019-01-21] MEDS: OXYCODONE/APAP 5/325 TAB PO PRN (07:18)
[2019-01-21] MEDS: amLODIPine BESYLATE 5 MG TAB PO SCH (08:47)
[2019-01-21] MEDS: TRIAMTERENE/HCTZ 37.5/25 1 EACH TAB PO SCH (08:47)
[2019-01-21] MEDS: PANTOPRAZOLE SODIUM 40 MG TAB PO SCH (08:47)
[2019-01-21] MEDS: CHOLECALCIFEROL PO SCH (08:48)
[2019-01-21] MEDS: GLUCOSAMINE MSM PO SCH (08:48)
[2019-01-21] MEDS: Co Q-10 100 MG PO SCH (08:49)
[2019-01-21] MEDS: PSYLLIUM METAMUCIL 1 PKT PO SCH (08:52)
[2019-01-21] MEDS ORDERED: LISINOPRIL 10 MG TAB PO SCH (09:00)
--- NOTE | 2019-01-21 10:12 | PDCARPN ---
Cardiology Progress Note Chief Complaint: post pacemaker implant Assessment/Plan: Assessment:1. Syncope with bifasicular block 2. s/p implant of dual chamber PM; incision site with steri strips intact. Dry, no drainage . No swelling or tenderness. Normal device function on interogation by SJM rep this morning. Excellent capture thresholds. No arrhythmias. 3 HTN Plan:1. Awaiting chest xray, if no pneumothorax, ok to D/C. Tylenol for discomfort atPM site if needed. Follow ups scheduled and entered in d/c plan. Activity restrictions entered in d/c plan. 2. added lisinopril to improve BP control 01/21/19 10:05 01/21/19 10:12 Reviewed/Discussed With: other (Dr. Colin) Objective: Vital Signs (8 Hrs) Temp Pulse Resp BP Pulse Ox 01/21/19 08:00 36.7 C 70 18 136/77 H 92 01/21/19 04:00 36.7 C 66 18 128/84 H 92 Intake/Output (24 Hrs) 01/20/19 01/21/19 01/22/19 05:59 05:59 05:59 Intake Total 1100 Output Total 3550 1100 Balance -3550 0 Intake: Oral (ml) 500 IV Intake (ml) 600 Output: Urine (ml) 3550 1100 Toilet 3550 1100 Other: Weight 93.3 kg Number of Voids Toilet 1 Result Diagrams: 01/20/19 06:35 01/20/19 06:35 Cardiac Labs: Cardiac Lab Results (72 Hrs) 01/18/19 19:15 Troponin I < 0.012 Telemetry: AP-VS/ FINANCIAL ANALYST ACCOUNTANT ICD10 Worksheet Patient Problems: Problems Problem Status Onset Syncope Acute Scalp laceration Acute Chest wall contusion Acute
[2019-01-21 12:02] VITALS: BP 155/69
--- NOTE | 2019-01-21 13:40 | ASDISCHSUM ---
Discharge Information Plan Status:Home with No Needs Medically Cleared to Leave:01/21/2019 Discharge Date:01/21/2019 CM D/C Disposition:Home, Routine, Self-Care ADT D/C Disposition:Home, Routine, Self-Care Projected Discharge Date:01/21/2019 Transportation at D/C: Discharge Delay Reason: Follow-Up Date:01/21/2019 Discharge Slot: Final Diagnosis: Placement Information Patient Contact Information Contact Name:EMILIANA Relationship: Address:[address] [place] [address] Work Phone: City:[place] Alternate Phone: State/Zip Code:[place] [address] Email: Financial Information Financial Class:Medicare Primary Plan Desc:MEDICARE INPATIENT Primary Plan Number:[id number] Secondary Plan Desc:FLORIDAL[employer]OL[employer] SUPPLEMENT Secondary Plan Number:[id number] Assessment Information LACE LACE Length of stay for Answers: 3 days current admission Acuity / Level of Answers: Yes Care: Did the patient have an inpatient admission? Comorbidities - select Answers: Other Notes: head injury all that apply # of Emergency department Answers: 1-2 visits in the last 6 months Score: 8 Date Signed: 01/21/2019 01:38 PM Electronically Signed By:Rosibel Gonzales RN [facility] CM Progress Note CM Note CM Note Notes: 01/19/2019 Case Management Note Pt admitted for syncope and head injury. Met w/pt and family member. Provided contact information to financial counseling. Encourage pt to call number on back of Medicare card to discuss concerns regarding pacemaker coverage. PT discharged pt from services at [facility] and cleared for home. OT cleared for home. Case Management d/c poc: independent with follow up as directed. Case Management available if needs change. Date Signed: 01/19/2019 02:46 PM Electronically Signed By:Rosibel Gonzales RN Case Management Discharge Plan Note Case Management Discharge Discharge Order Complete? Answers: Yes Patient to Obtain Answers: via Family Medications Transportation Arranged Answers: Family/Friends Discharge Comments Notes: 01/21/2019 Case Management Note Pt discharging independent with follow up as directed. Date Signed: 01/21/2019 01:39 PM Electronically Signed By:Rosibel Gonzales RN Intervention Information Intervention Type:*Incorrect Registration Date of Service:01/18/2019 05:50 PM Patient Type:Observation Staff Member:DINA Castillo, Jazmin Hours: Discipline: Severity: Comment:
--- NOTE | 2019-01-25 11:12 | PDDCSUM ---
Discharge Summary Discharge Summary: DOA 01/18/2019 DOD 01/21/2019 Discharge diagnoses: 1. 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 Dr. Colin, cardiology/electrophysiology Procedures: 1. Implantation of dual chamber pacemaker History / Hospital course: Mr Maldonado is a 78 year old male who presented to the ED after syncopal event. His EKG showed RBBB posterior fascicular block. Cardiology consult was obtained and a dual chamber pacemaker was recommended. Pt wished to proceed and recovered without complications. Discharge meds: Oxycodone 5 mg q6h prn pain #10 no refills No change in home meds Follow up: [facility] as planned
== END 2019-01-21 15:04 | disposition home or self-care (01) | DRG 244 ==
LOC: OBSVTOIN 13:02 → F2W 14:50
PROVIDERS: ADMIT Surgery; ATTEND Surgery
PROC: 0HQ0XZZ Repair Scalp Skin, External Approach (ICD-10-PCS; 2019-01-18)
PROC: 02H63JZ Insertion of Pacemaker Lead into Right Atrium, Percutaneous Approach (ICD-10-PCS; principal; 2019-01-20)
PROC: 0JH606Z Insertion of Pacemaker, Dual Chamber into Chest Subcutaneous Tissue and Fascia, Open Approach (ICD-10-PCS; principal; 2019-01-20)
PROC: 02HK3JZ Insertion of Pacemaker Lead into Right Ventricle, Percutaneous Approach (ICD-10-PCS; principal; 2019-01-20)
DX: I45.2 Bifascicular block (principal); S01.01XA Laceration without foreign body of scalp, initial encounter; S20.212A Contusion of left front wall of thorax, initial encounter; W11.XXXA Fall on and from ladder, initial encounter; Z72.0 Tobacco use; N40.0 Benign prostatic hyperplasia without lower urinary tract symptoms; E78.5 Hyperlipidemia, unspecified; I10 Essential (primary) hypertension; K21.9 Gastro-esophageal reflux disease without esophagitis; G93.89 Other specified disorders of brain; Y92.017 Garden or yard in single-family (private) house as the place of occurrence of the external cause; Y93.H9 Activity, other involving exterior property and land maintenance, building and construction
CPT/HCPCS: 84484-ER; 92523-GN; 97161-GP; 97165-GO; 97535-GO; C1785; C1898; G0390; J0690; J2250; J2704; J3010; Q9967